=== PATIENT | female | born 1935 | race Caucasian/White ===

== ENCOUNTER 2020-01-09 18:37 | Observation (INO) ==
[2020-01-09 19:49] LABS: BASOPHILS # (AUTO) 0.1 X10^3/uL (0.0-0.1); BASOPHILS % (AUTO) 1.2 % (0.2-1.0); EOSINOPHILS % (AUTO) 0.6 % (0.9-2.9); HEMATOCRIT 39.4 % (36.0-47.0); HEMOGLOBIN 12.9 g/dL (12.0-16.0); LYMPHOCYTES % (AUTO) 27.8 % (21.0-51.0); MEAN CORPUSCULAR HEMOGLOBIN 30.1 pg (27.0-34.0); MEAN CORPUSCULAR HGB CONC 32.8 g/dL (33.0-35.0); MEAN CORPUSCULAR VOLUME 91.7 fL (80.0-100.0); MONOCYTES # (AUTO) 0.5 x10^3/uL (0.3-0.8); MONOCYTES % (AUTO) 7.1 % (0.0-13.0); NEUTROPHILS # (AUTO) 4.7 x10^3/uL (2.2-4.8); NEUTROPHILS % (AUTO) 63.3 % (42.0-75.0); PLATELET COUNT 189 X10^3/uL (150.0-450.0); RED CELL DISTRIBUTION WIDTH 14.4 % (11.6-16.5); WHITE BLOOD COUNT 7.4 X10^3/uL (3.6-10.0)
[2020-01-09 20:03] LABS: BLOOD UREA NITROGEN 15 mg/dL (7-18); CARBON DIOXIDE 24.6 mmol/L (21-32); CHLORIDE 106 mmol/L (98-107); COR NA(FOR HYPERGLY) 144 mmol/L (136-145); SODIUM 143 mmol/L (136-145); TROPONIN I 0.08 ng/mL (0-1.5); eGFR NON BLACK RACES 25 (>60)
[2020-01-09 20:09] LABS: ALANINE AMINOTRANSFERASE 19 Units/L (12-78); ALBUMIN 3.8 g/dL (3.4-5.0); ALKALINE PHOSPHATASE 134 Units/L (46-116); ASPARTATE AMINO TRANSFERASE 25 Units/L (15-37); MAGNESIUM 1.9 mg/dL (1.7-2.9); PHOSPHORUS 3.3 mg/dL (2.6-4.7); TOTAL PROTEIN 7.7 g/dL (6.4-8.2); TSH (3RD GENERATION) 4.027 uIU/mL (0.358-3.74)
--- NOTE | 2020-01-09 20:44 | DR.GENAD ---
HPI Time Seen Time Seen by Provider: 01/09/20 19:18 Complaint/Symptoms Chief Complaint Doctors Comments: pt lives at home with a loving son. She is brought in by EMS because she has been acting out a bit more than normal. No CP no SOB no fever no n/v/d just a bit more agitated than normal. No modifiers noted. PMH PMH Past Medical History: Anxiety and Hypertension Past Surgical History: Yes Surgical History: Appendectomy and Hysterectomy Social History Do you use any recreational Drugs:: No ROS Review of Systems Constitutional: No Symptoms Reported Eyes: No Symptoms Reported ENTM: No Symptoms Reported Respiratoy: No Symptoms Reported Cardiovascular: No Symptoms Reported Genitourinary: No Symptoms Reported Musculoskeletal: No Symptoms Reported Integumentary: No Symptoms Reported Hematologic/Lymphatic: No Symptoms Reported Endocrine: No Symptoms Reported Psychiatric: See HPI All Other Systems: Reviewed and Negative PE Vital Signs Vitals: Temperature 97.5 F Pulse Rate 120 Respiratory Rate 22 Blood Pressure 97/52 O2 Sat by Pulse Oximetry 95 General Limitations: Other (pt with chronic dementia but alert and answers questions ) General Appearance: Alert and In No Apparent Distress; negative Appears Intoxicated, Anxious, Lethargic, Obtunded, In Distress, Obese and Cachectic Head Head Exam: Normal Inspection, Atraumatic and Normocephalic Eyes Eye exam: Normal Appearance, PERRL and EOMI; negative Scleral Icterus, Conjunctival Injection, Miosis, Mydrasis and Periorbital Tenderness ENT ENT Exam: Normal Exam, Normal Oropharynx and Normal External Ear Exam Mouth Exam: Normal Inspection; negative Drooling, Trismus, Lip Swelling, Tongue Elevation and Tongue Swelling Throat Exam: Normal Inspection; negative Tonsillar Erythema, Tonsillomegaly, To nsillar Exudate, R Peritonsillar Mass and L Peritonsillar Mass Neck Neck Exam: Normal Inspection, Full ROM and Trachea Midline; negative Lymphadenopathy Chest Chest Inspection: Normal Inspection and Symmetric Chest Wall Rise Respiratory Respiratory Exam: Normal Lung Sounds Bilat; negative Accessory Muscle Use, Chest Wall Tenderness, Prolonged Expiratory Phase, Respiratory Distress and Stridor Respiratory Exam: Bilateral: Clear to Auscultation Cardiovascular Cardiovascular Exam: Regular Rate, Normal Rhythm and Normal Heart Sounds Abdominal Exam Abdominal Exam: Normal Inspection, Normal Bowel Sounds and Soft; negative Distention, Tenderness and Guarding Back Back Exam: Normal Inspection and Full ROM; negative Tenderness Neurologic Neurological Exam: Alert and Oriented X3 (oriented to person and place only ) Psychiatric Psychiatric Exam: Normal Affect and Normal Mood Skin Skin Exam: Warm, Dry and Intact COURSE Treatment Treatment: Dr Lee accepted 2130 ROR Labs Reviewed Laboratory Results Reviewed?: Yes Result Diagrams: 01/09/20 19:38 01/09/20 19:38 Laboratory: WBC 7.4 X10^3/uL (3.6-10.0) 01/09/20 19:38 RBC 4.30 X10^6/uL (3.5-5.4) 01/09/20 19:38 Hgb 12.9 g/dL (12.0-16.0) 01/09/20 19:38 Hct 39.4 % (36.0-47.0) 01/09/20 19:38 MCV 91.7 fL (80.0-100.0) 01/09/20 19:38 MCH 30.1 pg (27.0-34.0) 01/09/20 19:38 MCHC 32.8 g/dL (33.0-35.0) L 01/09/20 19:38 RDW 14.4 % (11.6-16.5) 01/09/20 19:38 Plt Count 189 X10^3/uL (150.0-450.0) 01/09/20 19:38 MPV 8.0 fL (7.4-11.0) 01/09/20 19:38 Neut % (Auto) 63.3 % (42.0-75.0) 01/09/20 19:38 Lymph % (Auto) 27.8 % (21.0-51.0) 01/09/20 19:38 [place] % (Auto) 7.1 % (0.0-13.0) 01/09/20 19:38 Eos % (Auto) 0.6 % (0.9-2.9) L 01/09/20 19:38 Baso % (Auto) 1.2 % (0.2-1.0) H 01/09/20 19:38 Neut # (Auto) 4.7 x10^3/uL (2.2-4.8) 01/09/20 19:38 Lymph # (Auto) 2.0 X10^3/uL (1.3-2.9) 01/09/20 19:38 [place] # (Auto) 0.5 x10^3/uL (0.3-0.8) 01/09/20 19:38 Eos # (Auto) 0.0 x10^3/uL (0.0-0.2) 01/09/20 19:38 Baso # (Auto) 0.1 X10^3/uL (0.0-0.1) 01/09/20 19:38 Absolute Nucleated RBC 0.0 /100WBC 01/09/20 19:38 Sodium 143 mmol/L (136-145) 01/09/20 19:38 Corrected Sodium 144 mmol/L (136-145) 01/09/20 19:38 Potassium 3.7 mmol/L (3.5-5.1) 01/09/20 19:38 Chloride 106 mmol/L (98-107) 01/09/20 19:38 Carbon Dioxide 24.6 mmol/L (21-32) 01/09/20 19:38 BUN 15 mg/dL (7-18) 01/09/20 19:38 Creatinine 2.00 mg/dL (0.55-1.02) H 01/09/20 19:38 Est GFR (MDRD) Af Amer 31 (>60) L 01/09/20 19:38 Est GFR (MDRD) Non-Af 25 (>60) L 01/09/20 19:38 Glucose 134 mg/dL (65-99) H 01/09/20 19:38 Calcium 10.0 mg/dL (8.5-10.1) 01/09/20 19:38 Corrected Calcium TNP 01/09/20 19:38 Phosphorus 3.3 mg/dL (2.6-4.7) 01/09/20 19:38 Magnesium 1.9 mg/dL (1.7-2.9) 01/09/20 19:38 Total Bilirubin 0.40 mg/dL (0.2-1.0) 01/09/20 19:38 AST 25 Units/L (15-37) 01/09/20 19:38 ALT 19 Units/L (12-78) 01/09/20 19:38 Alkaline Phosphatase 134 Units/L (46-116) H 01/09/20 19:38 Troponin I 0.08 ng/mL (0-1.5) 01/09/20 19:38 Total Protein 7.7 g/dL (6.4-8.2) 01/09/20 19:38 Albumin 3.8 g/dL (3.4-5.0) 01/09/20 19:38 Globulin 3.9 g/dL (2.5-4.5) 01/09/20 19:38 Albumin/Globulin Ratio 1.0 Ratio (1.1-2.1) L 01/09/20 19:38 TSH 3rd Generation 4.027 uIU/mL (0.358-3.74) H 01/09/20 19:38 Specimen Type Catherized urine 01/09/20 21:00 Urine Color Yellow (YELLOW) 01/09/20 21:00 Urine Appearance Cloudy (CLEAR) 01/09/20 21:00 Urine pH 6.0 (5.0 - 8.0) 01/09/20 21:00 Ur Specific [place] 1.020 (1.000-1.030) 01/09/20 21:00 Urine Protein 2+ (NEGATIVE) 01/09/20 21:00 Urine Glucose (UA) Negative (NEGATIVE) 01/09/20 21:00 Urine Ketones 1+ (NEGATIVE) 01/09/20 21:00 Urine Occult Blood 2+ (NEGATIVE) 01/09/20 21:00 Urine Nitrite Negative (NEGATIVE) 01/09/20 21:00 Urine Bilirubin 1+ (NEGATIVE) 01/09/20 21:00 Urine Urobilinogen Normal (NORMAL) 01/09/20 21:00 Ur Leukocyte Esterase 3+ (NEGATIVE) 01/09/20 21:00 Urine RBC 3-5 /HPF (0-3) A 01/09/20 21:00 Urine WBC 30-50 /HPF (0-5) A 01/09/20 21:00 Ur Squamous Epith Cells Moderate /HPF (NEGATIVE) 01/09/20 21:00 Urine Bacteria 4+ /HPF (NEGATIVE) 01/09/20 21:00 Hyaline Casts Few /LPF (NEGATIVE) 01/09/20 21:00 Ur Culture Indicated? Yes/culture set up 01/09/20 21:00 EKG Rate: 93 [place]: LAD Rhythm: NSR Block: None Hypertrophy: LVH ST: Normal Opioid Opioid Risk Tool Age (Ernesto box if 16-45): No Total: 0 Total Score Risk Category: Low Risk Copyright: Richie STAFFORD predicting aberrant behaviors Diagnosis Discharge Problem: Change in mental status, Acute UTI Instructions Forms: Excuse From Work Precautions for COVID19 Patient Portal Social Distancing
[2020-01-09 21:08] LABS: BILIRUBIN,URINE 1+ (NEGATIVE); BLOOD/HEMOGLOBIN,URINE 2+ (NEGATIVE); GLUCOSE, URINE NEGATIVE (NEGATIVE); KETONES,URINE 1+ (NEGATIVE); LEUKOCYTE ESTERASE ,URINE 3+ (NEGATIVE); NITRITES,URINE NEGATIVE (NEGATIVE); PROTEIN,URINE 2+ (NEGATIVE); UROBILINOGEN,URINE NORMAL (NORMAL)
[2020-01-09 21:22] LABS: APPEARANCE,URINE CLOUDY (CLEAR); COLOR,URINE YELLOW (YELLOW)
[2020-01-09 21:23] LABS: BACTERIA,URINE 4+ /HPF (NEGATIVE); HYALINE CASTS, URINE FEW /LPF (NEGATIVE); SQUAMOUS EPITHELIAL CELL,UR MODERATE /HPF (NEGATIVE)
[2020-01-09] MEDS ORDERED: ROCEPHIN VIAL 1 GRAM 1 G in NS 100 ML IV + SPIKE MINIBAG* 100 ML IV ONE (21:28)
[2020-01-09] MEDS ORDERED: TYLENOL 325 MG TAB PO PRN (21:35)
[2020-01-09] MEDS ORDERED: ROCEPHIN VIAL 1 GRAM 1 G in NS 100 ML IV + SPIKE MINIBAG* 100 ML IV SCH (21:38)
[2020-01-09] MEDS ORDERED: ROCEPHIN VIAL 1 GRAM ONE (21:39)
[2020-01-09] MEDS ORDERED: LOVENOX INJ 40 MG SYR SC SCH (22:00)
[2020-01-09 23:27] VITALS: BMI 18.6
[2020-01-09] MEDS: LOVENOX INJ 30 MG SYR SC SCH (23:45)
[2020-01-10 06:43] LABS: BASOPHILS # (AUTO) 0.1 X10^3/uL (0.0-0.1); BASOPHILS % (AUTO) 0.8 % (0.2-1.0); EOSINOPHILS # (AUTO) 0.1 x10^3/uL (0.0-0.2); EOSINOPHILS % (AUTO) 1.2 % (0.9-2.9); HEMOGLOBIN 12.5 g/dL (12.0-16.0); LYMPHOCYTES # (AUTO) 2.5 X10^3/uL (1.3-2.9); LYMPHOCYTES % (AUTO) 35.7 % (21.0-51.0); MEAN CORPUSCULAR HEMOGLOBIN 30.1 pg (27.0-34.0); MEAN CORPUSCULAR VOLUME 91.4 fL (80.0-100.0); MONOCYTES # (AUTO) 0.6 x10^3/uL (0.3-0.8); NEUTROPHILS # (AUTO) 3.7 x10^3/uL (2.2-4.8); NEUTROPHILS % (AUTO) 53.3 % (42.0-75.0); PLATELET COUNT 164 X10^3/uL (150.0-450.0); RED BLOOD COUNT 4.16 X10^6/uL (3.5-5.4); RED CELL DISTRIBUTION WIDTH 14.2 % (11.6-16.5); WHITE BLOOD COUNT 6.9 X10^3/uL (3.6-10.0)
[2020-01-10 06:50] LABS: ALANINE AMINOTRANSFERASE 19 Units/L (12-78); ALBUMIN 3.6 g/dL (3.4-5.0); ALKALINE PHOSPHATASE 125 Units/L (46-116); ASPARTATE AMINO TRANSFERASE 23 Units/L (15-37); BLOOD UREA NITROGEN 16 mg/dL (7-18); CALCIUM 9.7 mg/dL (8.5-10.1); CARBON DIOXIDE 26.9 mmol/L (21-32); CHLORIDE 108 mmol/L (98-107); SODIUM 143 mmol/L (136-145); TOTAL PROTEIN 7.3 g/dL (6.4-8.2); eGFR NON BLACK RACES 46 (>60)
[2020-01-10] MEDS: MOBIC TAB 15 MG PO SCH ×2 (08:22→20:45)
[2020-01-10] MEDS ORDERED: PATIENT'S HOME MEDICATION (Meloxicam 7.5 MG) PO SCH (09:00)
--- NOTE | 2020-01-10 10:50 | DR.H&P ---
H&P - History & Physical for Day of: H&P Date: 01/09/20 - Chief Complaint Chief Complaint: ALTERED MENTAL STATUS - History of Present Illness History of Present Illness: IS A 84 YEAR OLD PATIENT OF [facility]. SHE PRESENTED TO THE ER VIA EMS. HER SON REPORTS THAT SHE HAS BEEN CONFUSED AND AGITATED AT HOME FOR THE PAST TWO DAYS. SHE IS DISORIENTED UPON ARRIVAL TO THE ER, BUT DENIES CHEST PAIN, SOB, NAUSEA, VOMITING, OR DIARRHEA. SHE IS IN NO APPARENT DISTRESS. HER PMH INCLUDES DEMENTIA, ANXIETY, HTN, APPENDECTOMY, AND HYSTERECTOMY. ON ARRIVAL TO THE ER, VITALS WERE 97.5-120-22-95%RA-97/52. LABS WERE OBTAINED. ABNORMAL LAB VALUES INCLUDE THE FOLLOWING: CREATININE 2.00, GLUCOSE 134, ALK PHOS 134, TSH 4.027. URINALYSIS REVEALED: WBC 30-50, RBC 3-5, BACTERIA 4+, LEUKOCYTES 3+, OCCULT BLOOD 2+, URINE PROTEIN 2+. BLOOD AND URINE CULTURES WERE SET UP. AN EKG WAS OBTAINED AND REVEALED: SINUS RHYTHM WITH HR 93. SHE WAS GIVEN ROCEPHIN 1G IV IN THE ER. SHE WAS ADMITTED FOR FURTHER EVALUATION AND TREATMENT OF URINARY TRACT INFECTION AND ALTERED MENTAL STATUS. SHE WAS STARTED ON ROCEPHIN 1G IV DAILY, LOVENOX 30MG SC DAILY, MELOXICAM 7.5MG PO BID, TYLENOL 650MG PO Q4H PRN, AND NORMAL SALINE AT 75 ML/HR. WE WILL REVIEW HER HOME MEDICATIONS. OTHERWISE, WE PLAN TO FOLLOW UP WITH AM LABS AND CONTINUE TO MONITOR. TIME SPENT WITH PATIENT ON EXAMINATION, REVIEWING CHART, COUNSELING, AND PLAN OF CARE BETWEEN 30-74 MINUTES. - Past Medical History Past Medical History: Anxiety, Dementia, Hypertension - Past Surgical History Surgical History: Appendectomy, Hysterectomy, Mastectomy, Ortho Surgery - Family History Family Medical History: Cancer, Hypertension - Social History Does patient currently use any type of tobacco product: No Have you used tobacco products in the last 12 months: No Type of Tobacco Use: None Does any household member use tobacco: No Alcohol Use: None Drug Use: None - Medications Home Medications: morphine Adverse Reaction (Verified 11/27/19 14:42) CONTINUE taking the following medications acetaminophen-codeine 1 tab PO Q4-6H PRN 01/09/20 [History] anastrozole 1 mg PO DAILY 01/09/20 [History] benztropine 0.5 mg PO QHS 01/09/20 [History] cholecalciferol (vitamin D3) [Vitamin D3] 25 mcg PO DAILY 01/09/20 [History] docusate sodium 100 mg PO DAILY 01/09/20 [History] donepezil 10 mg PO QHS 01/09/20 [History] escitalopram oxalate 15 mg PO DAILY 01/09/20 [History] escitalopram oxalate 20 mg PO QHS 01/09/20 [History] losartan 50 mg PO DAILY 01/09/20 [History] melatonin 5 mg PO QHS 01/09/20 [History] [id number] oil [[place]-3 Fish Oil] 1 cap PO DAILY 01/09/20 [History] risperidone 1 mg PO QHS 01/09/20 [History] - Review of Systems Constitutional: Weakness Eyes: No Symptoms Reported ENT: No Symptoms Reported Respiratory: No Symptoms Reported Cardiovascular: No Symptoms Reported Gastrointestinal: No Symptoms Reported Genitourinary: No Symptoms Reported Musculoskeletal: No Symptoms Reported Skin: No Symptoms Reported Neurological: See HPI, Weakness, Confusion - Physical Exam Vital Signs: Temperature 98.0 F Pulse Rate [Right Brachial] 76 Pulse Rate [Left] 83 Pulse Rate 120 Respiratory Rate 20 Blood Pressure [Right Arm] 138/63 Blood Pressure [Left Arm] 100/57 Blood Pressure 97/52 O2 Sat by Pulse Oximetry 96 Oriented: Person Eyes: Normal Ear: Normal Nose: Normal Throat: Normal Respiratory: Diminished Throughout Cardiovascular: Tachycardia : Normal Auscultation: Bowel Sounds: Normal Palpation: Normal Tenderness: Normal Skin: Decreased [place] Musculoskeletal: Normal Psychiatric: Normal Mood Description: Calm Affect: Normal Speech Pattern: Inappropriate - Assessment/Plan (1) Acute UTI Status: Acute Plan: ADMIT, ROCEPHIN 1G IV DAILY, LOVENOX 30MG SC DAILY, MELOXICAM 7.5MG PO BID, TYLENOL 650MG PO Q4H PRN, AND NORMAL SALINE AT 75 ML/HR. (2) Change in mental status Qualifiers: Altered mental status type: transient alteration of awareness Qualified Code(s): R40.4 - Transient alteration of awareness Status: Acute - Allergies Allergies/Adverse Reactions: Allergies Allergy/AdvReac Type Severity Reaction Status Date / Time morphine AdvReac Verified 11/27/19 14:42
[2020-01-10] MEDS ORDERED: NS 1000 ML 1,000 ML ONE (10:54)
[2020-01-10] MEDS: NS 1000 ML 1,000 ML IV SCH (11:03)
[2020-01-10] MEDS ORDERED: POTASSIUM CHL 40 MEQ/NS 0.45% 500 ML IV PRN (11:08)
[2020-01-10] MEDS ORDERED: K-RIDER 10 MEQ/NS 100 ML 10 MEQ/100 ML BAG IV PRN (11:08)
[2020-01-10] MEDS ORDERED: POTASSIUM CHLORIDE LIQ 20 MEQ UDC PO PRN (11:08)
[2020-01-10] MEDS ORDERED: K-DUR TAB 20 MEQ PO PRN (11:08)
[2020-01-10] MEDS ORDERED: KLOR-CON PO PRN (11:08)
[2020-01-10] MEDS ORDERED: POTASSIUM CHL 60 MEQ/NS 0.45% 500 ML IV PRN (11:08)
[2020-01-10] MEDS ORDERED: MICRO K EXTEN CAP 10 MEQ PO ONE (11:14)
[2020-01-10] MEDS ORDERED: MAGNESIUM SULFATE 1 GRAM/100 mL PREMIX 1 G/100 ML BAG IV ONE (11:14)
[2020-01-10] MEDS: MAGNESIUM SULFATE 1 GRAM/100 mL PREMIX 1 GM/100 ML BAG IV PRN ×2 (11:29→13:30)
[2020-01-10] MEDS: MICRO K EXTEN CAP 10 MEQ PO PRN (11:40)
[2020-01-10] MEDS: LOVENOX INJ 30 MG SYR SC SCH (22:23)
[2020-01-10] MEDS: ROCEPHIN VIAL 1 GRAM 1 G in NS 100 ML IV + SPIKE MINIBAG* 100 ML IV SCH ×3 (23:10)
[2020-01-11] MEDS: NS 1000 ML 1,000 ML IV SCH ×2 (03:23→15:57)
[2020-01-11 06:40] LABS: BASOPHILS # (AUTO) 0.1 X10^3/uL (0.0-0.1); EOSINOPHILS # (AUTO) 0.1 x10^3/uL (0.0-0.2); EOSINOPHILS % (AUTO) 1.9 % (0.9-2.9); HEMATOCRIT 37.2 % (36.0-47.0); HEMOGLOBIN 12.2 g/dL (12.0-16.0); LYMPHOCYTES # (AUTO) 2.3 X10^3/uL (1.3-2.9); LYMPHOCYTES % (AUTO) 39.6 % (21.0-51.0); MEAN CORPUSCULAR HEMOGLOBIN 30.1 pg (27.0-34.0); MEAN CORPUSCULAR HGB CONC 32.7 g/dL (33.0-35.0); MEAN PLATELET VOLUME 9.6 fL (7.4-11.0); MONOCYTES # (AUTO) 0.5 x10^3/uL (0.3-0.8); MONOCYTES % (AUTO) 7.8 % (0.0-13.0); NEUTROPHILS # (AUTO) 2.9 x10^3/uL (2.2-4.8); NEUTROPHILS % (AUTO) 49.7 % (42.0-75.0); PLATELET COUNT 144 X10^3/uL (150.0-450.0); RED BLOOD COUNT 4.04 X10^6/uL (3.5-5.4); RED CELL DISTRIBUTION WIDTH 14.1 % (11.6-16.5); WHITE BLOOD COUNT 5.8 X10^3/uL (3.6-10.0)
[2020-01-11 06:41] LABS: ALANINE AMINOTRANSFERASE 18 Units/L (12-78); ALBUMIN 3.4 g/dL (3.4-5.0); ALKALINE PHOSPHATASE 120 Units/L (46-116); ASPARTATE AMINO TRANSFERASE 25 Units/L (15-37); BLOOD UREA NITROGEN 12 mg/dL (7-18); CARBON DIOXIDE 23.3 mmol/L (21-32); CHLORIDE 106 mmol/L (98-107); CREATININE 0.82 mg/dL (0.55-1.02); MAGNESIUM 1.9 mg/dL (1.7-2.9); SODIUM 140 mmol/L (136-145); TOTAL PROTEIN 7.1 g/dL (6.4-8.2); eGFR NON BLACK RACES > 60 (>60)
[2020-01-11] MEDS: MOBIC TAB 15 MG PO SCH ×2 (08:44→21:46)
[2020-01-11] MEDS ORDERED: TYLENOL #3 TAB (W/CODEINE) PO PRN (09:45)
[2020-01-11] MEDS ORDERED: LEXAPRO ONE ×2 (10:31→20:26)
[2020-01-11] MEDS: MICRO K EXTEN CAP 10 MEQ PO PRN (10:34)
[2020-01-11] MEDS: LOVAZA PO SCH (10:35)
[2020-01-11] MEDS: COZAAR PO SCH (10:36)
[2020-01-11] MEDS: VITAMIN D3 25 mcg (1,000 UNITS) PO SCH (10:36)
[2020-01-11] MEDS: COLACE CAP 100 MG PO SCH (10:36)
[2020-01-11] MEDS: ARIMIDEX PO SCH (10:38)
[2020-01-11] MEDS: LEXAPRO PO SCH (10:39)
[2020-01-11] MEDS ORDERED: LEXAPRO PO SCH (21:00)
[2020-01-11] MEDS ORDERED: PATIENT'S HOME MEDICATION (Melatonin 5 MG) PO SCH (21:00)
[2020-01-11] MEDS ORDERED: RisperDAL TAB 1 MG PO SCH (21:00)
[2020-01-11] MEDS ORDERED: COGENTIN TAB 1 MG PO SCH (21:00)
[2020-01-11] MEDS ORDERED: LOVENOX INJ 40 MG SYR SC SCH (21:00)
[2020-01-11] MEDS ORDERED: ARICEPT TAB 10 MG PO SCH (21:00)
[2020-01-12] MEDS: ROCEPHIN VIAL 1 GRAM 1 G in NS 100 ML IV + SPIKE MINIBAG* 100 ML IV SCH (00:06)
[2020-01-12 06:00] LABS: ALANINE AMINOTRANSFERASE 16 Units/L (12-78); ALBUMIN 3.1 g/dL (3.4-5.0); ALKALINE PHOSPHATASE 107 Units/L (46-116); ASPARTATE AMINO TRANSFERASE 24 Units/L (15-37); BLOOD UREA NITROGEN 12 mg/dL (7-18); CALCIUM 9.1 mg/dL (8.5-10.1); CARBON DIOXIDE 21.9 mmol/L (21-32); CHLORIDE 108 mmol/L (98-107); COR CA(FOR HYPOALB) 9.8 mg/dL (8.5-10.1); CREATININE 0.71 mg/dL (0.55-1.02); SODIUM 140 mmol/L (136-145); TOTAL PROTEIN 6.5 g/dL (6.4-8.2); eGFR NON BLACK RACES > 60 (>60)
[2020-01-12 06:08] LABS: BASOPHILS % (AUTO) 0.8 % (0.2-1.0); EOSINOPHILS # (AUTO) 0.1 x10^3/uL (0.0-0.2); EOSINOPHILS % (AUTO) 2.8 % (0.9-2.9); HEMATOCRIT 37.6 % (36.0-47.0); HEMOGLOBIN 12.3 g/dL (12.0-16.0); LYMPHOCYTES # (AUTO) 1.7 X10^3/uL (1.3-2.9); LYMPHOCYTES % (AUTO) 37.1 % (21.0-51.0); MEAN CORPUSCULAR HEMOGLOBIN 29.9 pg (27.0-34.0); MEAN CORPUSCULAR HGB CONC 32.6 g/dL (33.0-35.0); MEAN CORPUSCULAR VOLUME 91.8 fL (80.0-100.0); MEAN PLATELET VOLUME 9.4 fL (7.4-11.0); MONOCYTES # (AUTO) 0.4 x10^3/uL (0.3-0.8); MONOCYTES % (AUTO) 7.7 % (0.0-13.0); NEUTROPHILS # (AUTO) 2.4 x10^3/uL (2.2-4.8); NEUTROPHILS % (AUTO) 51.6 % (42.0-75.0); PLATELET COUNT 142 X10^3/uL (150.0-450.0); RED BLOOD COUNT 4.09 X10^6/uL (3.5-5.4); RED CELL DISTRIBUTION WIDTH 14.3 % (11.6-16.5); WHITE BLOOD COUNT 4.7 X10^3/uL (3.6-10.0)
[2020-01-12] MEDS: NS 1000 ML 1,000 ML IV SCH (07:02)
[2020-01-12 08:37] VITALS: BP 134/67
[2020-01-12] MEDS ORDERED: LEXAPRO ONE (08:52)
[2020-01-12] MEDS: COLACE CAP 100 MG PO SCH (08:55)
[2020-01-12] MEDS: VITAMIN D3 25 mcg (1,000 UNITS) PO SCH (08:55)
[2020-01-12] MEDS: ARIMIDEX PO SCH (08:55)
[2020-01-12] MEDS: MOBIC TAB 15 MG PO SCH (08:56)
[2020-01-12] MEDS: LEXAPRO PO SCH (08:56)
[2020-01-12] MEDS: COZAAR PO SCH (08:57)
[2020-01-12] MEDS: LOVAZA PO SCH (08:57)
[2020-01-12] MEDS ORDERED: ROCEPHIN VIAL 1 GRAM 1 G in NS 100 ML IV + SPIKE MINIBAG* 100 ML IV SCH (21:00)
== END 2020-01-12 11:10 | disposition home health service (06) ==
LOC: ER 19:04 → MED/SURG 19:04
PROVIDERS: ADMIT Internal Medicine; ATTEND Internal Medicine
CPT/HCPCS: 36415; 80053; 81001; 83735; 84100; 84443; 84484; 85025; 87040; 87086; 92507; 92610; 93005; 96360; 96361; 96365; 96372; 96374; 97163; 97530; 99284; A4216; A4222; G0378; J0696; J1650; J3475; J3490; J7030; J7050; S0170